=== PATIENT | female | born 2000 | race Caucasian/White ===

== ENCOUNTER 2025-05-15 15:58 | Day surgery (SDC) | payer OTHER, SELFPAY ==
[2025-05-15] VITALS (10 sets, daily range): BP systolic 96–121; BP diastolic 58–84
[2025-05-15 12:03] LABS: Hematocrit 40.6 % (37.0-47.0); Hemoglobin 13.5 g/dL (12.0-16.0); Mean Corp Hgb Conc. 33.3 g/dL (33.0-37.0); Mean Corpuscular Volume 93.5 fL (81.0-99.0); Nucleated Red Blood Cells % 0 %; Platelet Count 201 10^3/uL (130-400); Red Cell Dist. Width 12.2 % (11.5-14.5)
[2025-05-15 12:17] LABS: HCG, Serum Qualitative Screen Negative
[2025-05-15 12:20] LABS: ALT (SGPT) 20 U/L (0-35); AST (SGOT) 20 U/L (14-36); Albumin 4.2 g/dl (3.5-5.0); Alkaline Phosphatase 50 U/L (38-126); Blood Urea Nitrogen 11 mg/dl (7-17); Calcium 9.2 mg/dl (8.4-10.2); Carbon Dioxide 26 mmol/L (22-30); Chloride 106 mmol/L (98-107); Glucose 96 mg/dl (70-99); Lipase 56 U/L (23-300); Potassium 4.0 mmol/L (3.5-5.1); Sodium 138 mmol/L (135-145); Total Protein 7.1 g/dl (6.3-8.2); eGFR > 60.00
--- NOTE | 2025-05-15 12:48 | ED.GENMED ---
History of Present Illness
General
Chief Complaint: Abdominal Pain
Time Seen by Provider: 05/15/25 12:48
History of Present Illness
History of Present Illness:
FOCUSED PAST MEDICAL HISTORY
- Has had kidney stones
REVIEW OF OLD RECORDS
- No old records available for review
Note:
CHIEF COMPLAINT(S)
Abdominal pain.
HISTORY OF PRESENT ILLNESS
The patient is a 25-year-old female who presented with abdominal pain that began suddenly yesterday at approximately 1 PM. The pain originated in the upper abdomen above the umbilicus and radiated to the sides. She described the discomfort as
progressing quickly within the hour, noting it was particularly tender to palpation to the right of her umbilicus. She reported having a bowel movement and experiencing gas preceding the onset of pain. Although the pain was worse yesterday, she
stated it is still present today. The pain is characterized as a sharp sensation, with localized tenderness upon palpation. The patient also noted that her menstruation is delayed by about a week and a half, raising concerns about her condition.
Additionally, the patient maintains an appetite and could eat if necessary.
PAST MEDICAL AND SURGICAL HISTORY
The patient confirmed she still has her appendix.
ADDITIONAL HISTORY OBTAINED FROM SOURCES OTHER THAN THE PATIENT
The patients boyfriend mentioned the patient feeling discomfort and having tenderness upon applying pressure around the abdomen, particularly to the right of the umbilicus.
SOCIAL HISTORY
No details regarding smoking, alcohol, or drug use were discussed.
REVIEW OF SYSTEMS
- Gastrointestinal:
- Upper abdominal pain above the belly button, radiating to the right side.
- Sharp pain, tender to touch.
- Bowel movement prior to the onset of pain.
- Gas present since onset.
- General:
- Delayed menstrual period by a week and a half.
- Maintained appetite.
PHYSICAL EXAM
- General: Alert, no acute distress.
- Skin: Warm, dry.
- Head: Normocephalic, atraumatic.
- Neck: Supple, trachea midline.
- Eye, Ears, Nose, Mouth, and Throat: Oral mucosa moist.
- Cardiovascular: Normal peripheral perfusion, no edema.
- Respiratory: Respirations are non-labored.
- Gastrointestinal: There is mild diffuse tenderness which is slightly more prominent the right lower quadrant, no peritoneal signs
- Back: Normal range of motion, normal alignment.
- Musculoskeletal: Normal ROM, normal strength.
- Neurological: Alert and oriented to person, place, time, and situation; no focal neurological deficit observed.
- Psychiatric: Cooperative, appropriate mood & affect.
PLAN
1. Obtain an abdominal ultrasound to assess for potential ovarian cyst and evaluate the appendix.
2. Encourage the patient to drink fluids to fill the bladder to facilitate ultrasound visualization.
3. Monitor and re-evaluate based on ultrasound findings.
4. Discuss non-invasive nature of ultrasound versus the radiation risk of a CT scan.
DIFFERENTIAL DIAGNOSIS
The Differential Diagnosis includes, in no particular order and is not limited to:
1. Ovarian cyst
2. Appendicitis
3. Early
4. Gastroenteritis
5. Pelvic inflammatory disease
6. Urinary tract infection
7. Musculoskeletal pain
8. Gastritis
9. Peptic ulcer disease
10. Constipation
RADIOLOGY
- Ultrasound imaging obtained
LABS
- White count and hemoglobin are normal, chemistries unremarkable, lipase and ALT is normal, hCG negative
UPDATE
-SUMMARY OF ENCOUNTER
The patient is a 25-year-old female who presented to the emergency department with sudden onset abdominal pain that began yesterday, described as sharp and localized to the right of the umbilicus. The concern was raised regarding possible
appendicitis, given the acute nature and tenderness upon palpation. A pelvic ultrasound ruled out ovarian cysts. However, a lower quadrant ultrasound suggested appendicitis with an enlarged appendix and inflammatory changes. The decision was made to
consult with the on-call general surgeon for evaluation and probable surgical intervention. An IV line was placed, and IV antibiotics were prepared for administration.
DISPOSITION
Admit for surgical evaluation and potential operative intervention.
ASSESSMENT
The patient exhibits signs and imaging findings suggestive of appendicitis.
EMERGENCY TREATMENTS ADMINISTERED
IV antibiotics were administered after placing an IV line.
MANAGEMENT OF THE PATIENTS CARE WAS DISCUSSED WITH
Consultation with Dr. Coleman, on-call for general surgery, was conducted for evaluation and likely OR intervention.
PLAN
Admit the patient under the care of general surgery for further evaluation and potential surgery for appendicitis. Administer IV antibiotics.
INDEPENDENT REVIEW OF LABS AND INTERPRETATION OF TESTS
My independent interpretation of the pelvic ultrasound indicates no ovarian cysts present. My independent interpretation of the lower quadrant ultrasound shows an appendix measuring 8mm with inflammatory changes suggestive of appendicitis.
MEDICAL DECISION MAKING
- Number and Complexity of Problems Addressed: Chronic conditions affecting care include potential appendicitis and differential diagnosis considerations such as ovarian cyst, appendicitis, early , gastroenteritis, pelvic inflammatory
disease, urinary tract infection, musculoskeletal pain, gastritis, peptic ulcer disease, and constipation.
- Data:
Category 1: My independent interpretation of the pelvic ultrasound ruled out ovarian cysts. My independent interpretation of the lower quadrant ultrasound indicates an appendicitis diagnosis.
Category 3: Discussion of management with Dr. Coleman, on-call general surgeon.
- Risk: Consideration of Admission/Observation: Escalation of care including admission was necessary given the complexity and risk of the patients presenting complaint and imaging findings suggestive of appendicitis.
DIAGNOSIS
Acute appendicitis (K35.80).
Phy Exam
Physical Exam
Physical Exam:
See HPI
Course
Orders/Labs/Results
Orders:
Orders
05/15/25 Lunch
NPO
Allow oral meds: Yes
Allow clear liquids: No
05/15/25 11:49
Test Result ONCE
05/15/25 11:56
C-Reactive Protein Urgent
Comment: CRP ADDED ON BY FLOOR 2:50PM 05-15-25
CBC/With Diff [Complete Blood Count/With Diff] Urgent
CMP [Comprehensive Metabolic Panel] Urgent
HCG, Serum Qualitative Screen Urgent
Lipase Urgent
05/15/25 12:54
US Abdomen - Appendix Only Urgent
Comment:
Reason For Exam: abd pain; RLQ tender; normal WBC; hcg neg
US Pelvis Only (non-obstetric) Urgent
Comment:
Reason For Exam: abd pain; RLQ tender; normal WBC; hcg neg
05/15/25 14:52
Add On- LAB Urgent
Tests Added?: cRP
05/15/25 15:00
0.9% Sodium Chloride 1000 ml [Nss] 1,000 ml IV BOLUS
05/15/25 15:40
Ampicillin/Sulbactam 3 G [Unasyn] 3 gm 0.9% Sodium Chloride 100 ml [Nss] 100 ml IV NOW
05/15/25 15:51
Dexamethasone Sod Phosphate [Decadron] 20 mg .ROUTE .STK-MED ONE
Fentanyl Citrate/Pf [Sublimaze] 100 mcg .ROUTE .STK-MED ONE
Lidocaine 2% Mpf [Xylocaine Mpf 2%] 100 mg .ROUTE .STK-MED ONE
Midazolam HCl [Versed] 2 mg .ROUTE .STK-MED ONE
Ondansetron Injectable [Zofran] 4 mg .ROUTE .STK-MED ONE
Propofol [Diprivan] 20 ml .ROUTE .STK-MED
Rocuronium Duson [Rocuronium] 50 mg .ROUTE .STK-MED ONE
05/15/25 15:52
Bupivacaine 0.25%Pf/Epinephrin [Sensorcaine-Epi 0.25%-0.0005] 30 ml .ROUTE .STK-MED ONE
Dexamethasone Pf [Decadron] 10 mg .ROUTE .STK-MED ONE
05/15/25 16:04
Fentanyl Citrate/Pf [Sublimaze] 25 mcg IV [id number] PRN
Fentanyl Citrate/Pf [Sublimaze] 25 mcg IV PACU-Q5MPRN PRN
Fentanyl Citrate/Pf [Sublimaze] 50 mcg IV PACU-Q5MPRN PRN
Ondansetron Injectable [Zofran] 4 mg IV PACU-ONCEPRN PRN
Prochlorperazine [Compazine] 5 mg IV PACU-ONCEPRN PRN
05/15/25 16:05
Notify MD As Directed
Notify physician if: for SDS patients with known or suspected sleep obstructive sleep apnea, monitor in the
PACU.
Notify MD for any apneic/desaturation episodes
O2 Therapy [RESP] Urgent
Titrate/Wean O2 to maintain O2 sat greater than (%): 92
Special Instructions: -Provide supplemental oxygen to achieve O2 sat of 92% or greater.
-After 15 min, may wean O2 and discontinue if patient is able to maintain O2 sat of 92%
or greater during recovery period.
If patient is a discharge home, without oxygen therapy, notify anestheiologist if
unable to maintain O2 SAT of 92% or greater on room air for MD clearance.
05/15/25 16:15
Normosol (Mult Electrolytes) [Normosol-R/Plasmalyte-A] 1,000 ml IV PER PROTOCOL
05/15/25 16:23
Propofol [Diprivan] 20 ml .ROUTE .STK-MED
05/15/25 16:47
Acetaminophen 1000MG/100Ml [Ofirmev] 1,000 mg in 100 ml .ROUTE .STK-MED
05/15/25 16:48
Sugammadex Sodium [Bridion] 200 mg .ROUTE .STK-MED ONE
05/15/25 16:54
OR Pathology Routine
Pre-Operative Diagnosis: ACUTE APPENDICITIS, ABDOMINAL PAIN
Operative Procedure: Laparoscopic Appendectomy
Surgeon: STACIE COLEMAN
Circulating Nurse: HARDY TONY
Specimen Type: APPENDIX
05/15/25 17:05
Ketorolac [Toradol] 30 mg .ROUTE .STK-MED ONE
05/15/25 17:08
Phenylephrine HCl/0.9% NaCl [Romaine-Synephrine] 1,000 mcg .ROUTE .STK-MED ONE
05/15/25 17:17
HYDROmorphone [Dilaudid] 1 mg .ROUTE .STK-MED ONE
05/15/25 18:00
Acetaminophen [Tylenol] 650 mg PO SDS-Q4HPRN PRN
Ibuprofen [Motrin] 600 mg PO SDS-Q6HPRN PRN
Ondansetron Injectable [Zofran] 4 mg IV SDS-ONCEPRN PRN
Oxycodone [Roxicodone] 10 mg PO SDS-Q4HPRN PRN
Oxycodone [Roxicodone] 5 mg PO SDS-Q4HPRN PRN
05/15/25 18:24
Oxycodone [Roxicodone] 5 mg .ROUTE .STK-MED ONE
Abnormal Lab Results
05/15/25
11:56
MCH 31.1 H pg
(27.0-31.0)
MPV 10.8 H fL
(7.4-10.4)
C-Reactive Protein 28.70 H mg/L
(0.0-10.00)
05/15/25 11:56
05/15/25 11:56
Vital Signs
Initial and Last Documented VS:
Initial Vital Signs
Temp Pulse Resp BP Pulse Ox
36.7 C 75 20 118/84 99
05/15/25 11:45 05/15/25 11:45 05/15/25 11:45 05/15/25 11:45 05/15/25 11:45
Last Documented Vital Signs
Temp Pulse Resp BP Pulse Ox
36.4 C 72 19 101/70 98
05/15/25 18:06 05/15/25 18:27 05/15/25 18:27 05/15/25 18:38 05/15/25 18:37
*Pulse Oximetry
SaO2: 99
Oxygen Mode of Delivery: Room air
Patient hypoxic: no
*Critical Care Note
Total Time (30-74mins, 75-104mins- exclusive of procedures): Not Applicable
ED Attending Note
-
Portions of this chart may have been created with voice recognition software.� Occasional wrong word or��sound alike� substitutions may have occurred due to the inherent limitations of voice recognition software.
Discharge Plan
Departure
Patient Disposition: Admit
Date of Disposition: 05/15/25
Time of Disposition: 15:00
Presentation/result/management discussed w/ accepting MD/DO: della
Discharge Problem:
Acute appendicitis
Interventions
Interventions:
*Risk Screen - Suicide Last Done: 05/15/25 11:45
*General Assessment Last Done: 05/15/25 11:45
*Neglect/Abuse Screening Last Done: 05/15/25 11:45
*ED- Fall Risk Assessment Last Done: 05/15/25 14:14
*ED COVID-19 Vaccine History Last Done: 05/15/25 11:45
*ED Influenza Vaccine History Last Done: 05/15/25 11:45
*Nursing Disposition Last Done: 05/15/25 15:58
AC-Oijywb-Bpnyuqoaqp Assessment Last Done: 05/15/25 14:14
Discharge Date and Time
Discharge Date/Time: 05/15/25 15:58
--- NOTE | 2025-05-15 15:17 | HPS.HSE ---
Family Physician
-
Family Physician: * NONE
Chief Complaint
-
RLQ pain
History of Present Illness
Ms Perez is a 25 yo female without significant medical history who present for approximately 24 hours of abdominal pain. Her pain began initially in the mid abdomen above the umbilicus and then radiated down into the RLQ. She has RLQ tenderness
present on exam. She denies fevers, chills, bowel or bladder changes. She denies associated nausea or vomiting.
Medical History
Past Medical History
Past Medical History: Reports None
Past Surgical History: Reports Other (Descanso teeth removal)
Social History
Tobacco: Non-smoker
Family History
Family History: Not pertinent
Allergies / Home Medications
Allergies reflects when Allergies were last updated in [employer].
Home Medications with original date entered in [employer]
Allergy/Medication List:
Patient Allergies
Allergy/AdvReac Type Severity Reaction Status Date / Time
No Known Allergies Allergy Unverified 05/15/25 11:44
If medication reconciliation has not been performed, why?: Medication List N/A
Review of Systems
-
History Source: Patient
A 12 point ROS was completed and negative except as noted: Yes
Physical Exam
Vital Signs
Vital Signs
Temp Pulse Resp BP Pulse Ox
98.1 F 75 20 118/84 99
05/15/25 11:45 05/15/25 11:45 05/15/25 11:45 05/15/25 11:45 05/15/25 12:48
Physical Exam
General: Well Developed and Well Nourished
HEENT: NormoCephalic and Moist mucous membranes
GI: Soft and Tender (RLQ, +rovsing's)
Skin: Warm and Dry
Neuro: Awake, Alert and AO x 3
Psych: Calm
Laboratory Results
-
05/15/25 11:56
05/15/25 11:56
Laboratory Results
Total Bilirubin 0.9 mg/dl (0.2-1.3) 05/15/25 11:56
AST 20 U/L (14-36) 05/15/25 11:56
ALT 20 U/L (0-35) 05/15/25 11:56
Alkaline Phosphatase 50 U/L (38-126) 05/15/25 11:56
Lipase 56 U/L (23-300) 05/15/25 11:56
Data Reviewed
-
Ultrasound: Image Personally Visualized and interpreted, Report Reviewed by me, Discussed with Physician and Discussed with Patient
Lab Data: Labs Reviewed by me, Discussed with Physician and Discussed with Patient
Old Records: Reviewed
Impression/Plan
-
IMPRESSION:
25 yo female presenting with 24 hours of abdominal pain now localized to the RLQ with exam and US imaging consistent with acute appendicitis. Normal WBC. Normal renal function. Afebrile, VSS.
PLAN:
Will plan laparoscopic appendectomy today
NPO for OR
Unasyn given in the ED
Analgesics as needed
[2025-05-15] MEDS: NSS 1000 IV (15:22)
[2025-05-15 15:44] LABS: C-Reactive Protein 28.70 mg/L (0.0-10.00)
--- NOTE | 2025-05-15 17:35 | W.IMMPOSTOP ---
Surgical Immed Post Op Note
-
Primary Surgeon: Hill Coleman MD
Assisting Surgeon: Jaimie Wagner NP
Pre-op Diagnosis: acute appendicitis
Post-op Diagnosis: same
Procedure Performed: laparoscopic appendectomy
Anesthesia Type: general plus local
Specimen / Cultures: appendix
Estimated Blood Loss: 5 cc
Complications: no immediate
Operative Findings: swollen non-perforated appendix
Hope to d/c from [facility].
[2025-05-15] MEDS: ROXICODONE 5 MG PO (18:25)
== END 2025-05-15 17:39 | disposition home or self-care (01) ==
LOC: SDS 15:58
PROVIDERS: ATTENDING PHYSICIAN Surgery; EMERGENCY PHYSICIAN Emergency Medicine
DX: K35.80 Unspecified acute appendicitis (principal)
CPT/HCPCS: 44970; 76705; 76856; 80053; 83690; 84703; 85025; 86140; 88304; 96360; 99284

== ENCOUNTER 2025-05-16 22:14 | Emergency (ER) | payer OTHER, SELFPAY ==
[2025-05-16 22:16] VITALS: BP 102/68
[2025-05-16 23:07] LABS: Hematocrit 37.2 % (37.0-47.0); Hemoglobin 12.2 g/dL (12.0-16.0); Mean Corp Hgb Conc. 32.8 g/dL (33.0-37.0); Mean Corpuscular Volume 93.5 fL (81.0-99.0); Nucleated Red Blood Cells % 0 %; Platelet Count 176 10^3/uL (130-400); Red Cell Dist. Width 12.4 % (11.5-14.5)
[2025-05-16 23:27] LABS: HCG, Serum Qualitative Screen Negative
[2025-05-16 23:30] VITALS: BP 105/71
[2025-05-16 23:31] LABS: ALT (SGPT) 17 U/L (0-35); AST (SGOT) 16 U/L (14-36); Albumin 3.6 g/dl (3.5-5.0); Alkaline Phosphatase 41 U/L (38-126); Blood Urea Nitrogen 18 mg/dl (7-17); Calcium 8.8 mg/dl (8.4-10.2); Carbon Dioxide 25 mmol/L (22-30); Chloride 110 mmol/L (98-107); Glucose 113 mg/dl (70-99); Potassium 3.8 mmol/L (3.5-5.1); Sodium 142 mmol/L (135-145); Total Protein 6.1 g/dl (6.3-8.2); eGFR > 60.00
--- NOTE | 2025-05-16 23:44 | ED.GENMED ---
History of Present Illness
General
Chief Complaint: Post Operative Problem(s)
Source: patient
Exam Limitations: none
Time Seen by Provider: 05/16/25 23:24
Nursing documentation reviewed up to this point in time: agreed with
History of Present Illness
History of Present Illness:
Note:
CHIEF COMPLAINT(S)
Chest pain and difficulty breathing following recent surgery.
HISTORY OF PRESENT ILLNESS
The patient is a 25-year-old female who presents today from home with chest pain and difficulty breathing, which began the night after her recent surgery. Of note, she had an appendectomy yesterday (05/15) and reports that her pain started that
night, The pain initially started on the right side and later involved the left side. The patient reported the pain worsens when lying down and decreases in intensity when standing and sitting. She describes the pain as sharp and states that it is
aggravated by deep breaths, laughing, or coughing. She notes that the pain is persistent, even with the use of pain medications, including oxycodone and acetaminophen, which provided minimal relief earlier. The patient denies any history of similar
symptoms, coughing, fever, or recent infections. She expresses feeling shortness of breath upon standing and walking but not while lying down. There was no indication of redness, swelling, or pain in the lower extremities, no back pain, and no
obvious tenderness to touch. She denies any sick contacts. She called her surgeon who advised her to report to the ER for further evaluation.
PAST MEDICAL AND SURIGICAL HISTORY
unremarkable laparoscopic appendectomy
SOCIAL HISTORY
The patient reported a history of smoking tobacco products in the past but quit over a year and a half ago.
REVIEW OF SYSTEMS
- General: No fever reported.
- Respiratory: Shortness of breath upon standing and walking; pain worsens with deep breathing.
- Cardiovascular: No palpitations reported; family history of unspecified heart issues in the mother.
- Gastrointestinal: No symptoms discussed.
- Neurological: No focal neurological deficits reported.
- Musculoskeletal: No redness, swelling, or pain in the lower extremities.
PHYSICAL EXAM
General: Alert, no acute distress.
Skin: Warm, dry.
Head: Normocephalic, atraumatic.
Neck: Supple, trachea midline.
Eyes, Ears, Nose, Mouth, and Throat: Oral mucosa moist.
Cardiovascular: No tenderness to palpation to the external chest wall. Regular rate and rhythm, no murmurs. Normal peripheral perfusion, No edema.
Respiratory: Respirations are non-labored. No wheezes, rales, rhonchi.
Gastrointestinal: Abdomen nondistended.
Back: Normal range of motion, Normal alignment.
Musculoskeletal: Normal range of motion, normal strength.
Neurological: Alert and oriented to person, place, time, and situation, No focal neurological deficit observed.
Psychiatric: Cooperative, appropriate mood & affect.
PLAN
- Obtain a CT scan of the chest to rule out pulmonary embolism or pneumothorax as possible causes of the chest pain.
- Assess for pleuritic inflammation, a potential cause for the symptoms post-surgery.
- Continue pain management and monitor patients symptoms.
- Advise follow-up based on imaging results to determine further management or need for additional interventions.
DIFFERENTIAL DIAGNOSIS
The Differential Diagnosis includes, in no particular order and is not limited to:
1. Pulmonary embolism
2. Pneumothorax
3. Pleuritic inflammation
4. Musculoskeletal pain
5. Post-surgical pain syndrome
6. Costochondritis
7. Gastroesophageal reflux disease (GERD)
8. Myocarditis
9. Pericarditis
10. Anxiety-related chest pain
Disposition:
SUMMARY OF ENCOUNTER
The patient, a 25-year-old female, presented to the emergency department with concerns of chest pain, which worsens with deep breathing, laughing, and lying down. She recently underwent an appendectomy, which increases her risk for postoperative
complications such as pulmonary embolism (PE). After the assessment, she was sent for a PE study, which returned negative. Her symptoms were ruled out for acute coronary syndrome (ACS) with normal EKGs and troponin levels. It is suspected that the
chest pain may be due to musculoskeletal etiologies related to recent surgery and intubation, or possibly a component of pleurisy or costochondritis. The patient responded well to treatment and was observed sleeping comfortably.
DISPOSITION
Discharge.
ASSESSMENT
Suspected musculoskeletal pain related to recent surgery and intubation, pleurisy, or costochondritis.
PLAN
Discuss the use of anti-inflammatory medications at home.
INDEPENDENT REVIEW OF LABS AND INTERPRETATION OF TESTS
- My independent review of the pulmonary embolism study is negative for PE.
- My independent review of the EKGs indicates normal results.
- My independent review of the cardiac markers shows normal troponin levels.
PATIENT EDUCATION AND COUNSELING
The patient was advised on the use of anti-inflammatory medications at home for symptom management.
FOLLOW-UP INSTRUCTIONS
The patient was advised to follow up with her primary care provider or surgeon if symptoms persist or worsen.
MEDICATION RECONCILIATION
Discussed the use of anti-inflammatory medications.
MEDICAL DECISION MAKING
-Number and Complexity of Problems Addressed: Post-surgical complications. Potential musculoskeletal pain, pleurisy, costochondritis, or a result of postoperative intubation.
-Data:
-Category 1:
- My independent interpretation of the pulmonary embolism study, which was negative.
- My independent review of the EKG and troponin levels indicated normal results.
- Risk: Escalation of care including admission/observation was considered given the complexity and risk of the patients presenting complaint and exam findings. However, ultimately I feel the patient is safe for outpatient management with close
follow-up due to reassuring work-up, well-controlled symptoms upon reevaluation, stable vitals, and reliable follow-up.
DIAGNOSIS
- Musculoskeletal chest pain (ICD-10: M54.6)
- Pleurisy (ICD-10: R09.1)
Review of Systems
Review of Systems
All Other Systems: ROS reviewed and negative except as documented in HPI and ROS
Phy Exam
Physical Exam
Physical Exam:
see hpi
Course
Orders/Labs/Results
Orders:
Orders
05/16/25 22:19
EKG [Electrocardiogram (*1)] Urgent
Reason for Study: Chest Pain
EKG- Treatment ONCE
05/16/25 23:01
Test Result ONCE
05/16/25 23:02
Complete Blood Count/With Diff Urgent
Comprehensive Metabolic Panel Urgent
HCG, Serum Qualitative Screen Urgent
Troponin I Urgent
05/17/25 00:03
CT Chest PE Study Urgent
Reason For Exam: chest pain, shortness of breath
05/17/25 01:29
Ketorolac [Toradol] 15 mg IV NOW STA
05/17/25 02:00
Electrocardiogram (*1) Urgent
Reason for Study: Chest Pain
05/17/25 02:07
Troponin I Urgent
Abnormal Lab Results
05/16/25
23:02
RBC 3.98 L 10^6/uL
(4.20-5.40)
MCHC 32.8 L g/dL
(33.0-37.0)
MPV 11.4 H fL
(7.4-10.4)
Chloride 110 H mmol/L
(98-107)
BUN 18 H mg/dl
(7-17)
Glucose 113 H mg/dl
(70-99)
Total Protein 6.1 L g/dl
(6.3-8.2)
05/16/25 23:02
05/16/25 23:02
Vital Signs
Initial and Last Documented VS:
Initial Vital Signs
Temp Pulse Resp BP Pulse Ox
97.6 F 67 16 102/68 100
05/16/25 22:16 05/16/25 22:16 05/16/25 22:16 05/16/25 22:16 05/16/25 22:16
Last Documented Vital Signs
Temp Pulse Resp BP Pulse Ox
97.6 F 61 14 97/68 97
05/16/25 22:16 05/17/25 00:45 05/17/25 00:45 05/17/25 00:00 05/17/25 00:45
*Pulse Oximetry
SaO2: 98
Oxygen Mode of Delivery: Room air
Patient hypoxic: no
*Critical Care Note
Total Time (30-74mins, 75-104mins- exclusive of procedures): Not Applicable
ED Attending Note
-
Portions of this chart may have been created with voice recognition software.� Occasional wrong word or��sound alike� substitutions may have occurred due to the inherent limitations of voice recognition software.
Discharge Plan
Departure
Patient Disposition: Home (Routine Discharge)
Date of Disposition: 05/17/25
Time of Disposition: 03:17
Patient with high blood pressure during this ER visit?: No
Condition: Good
Discharge Problem:
Chest pain
Instructions: Postoperative Pain (DC), Pleurisy
Prescriptions:
No Action
Louise[place] Extra Strength 500-1,985-1,000 mg Tablet, Effervescent
1 ea PO DAILYPRN PRN (Reason: cold/flu)
acetaminophen 325 mg tablet
650 mg PO Q4HPRN PRN (Reason: mild pain) Qty: 1 0RF
ibuprofen 200 mg tablet
400 - 600 mg PO Q6HPRN PRN (Reason: moderate pain) Qty: 1 0RF
oxycodone 5 mg tablet
5 mg PO Q4HPRN PRN (Reason: breakthrough/severe pain) Qty: 8 0RF
Referrals:
NONE,* [Family Provider, Internal Medicine]
Stand Alone Forms: Return to Work
Activity Restrictions/Additional Instructions:
Please continue pain management at home. Please follow-up with your surgeon. Please follow-up with your primary care provider in approximately 1 week for reexamination and reassessment of your symptoms.
PLEASE RETURN TO THE ER SHOULD YOU DEVELOP ANY ACUTE WORSENING OF YOUR PAIN, DIZZINESS, LIGHTHEADEDNESS, FAINTING SPELLS, PALPITATIONS, FEVERS, OR ANY OTHER SIGNS OR SYMPTOMS WORRISOME TO YOU.
Interventions
Interventions:
*Risk Screen - Suicide Last Done: 05/16/25 22:48
*General Assessment Last Done: 05/16/25 22:48
*Neglect/Abuse Screening Last Done: 05/16/25 22:48
*ED- Fall Risk Assessment Last Done: 05/16/25 22:48
*ED COVID-19 Vaccine History Last Done: 05/16/25 22:48
*ED Influenza Vaccine History Last Done: 05/16/25 22:48
*Nursing Disposition Last Done: 05/17/25 03:52
ED-Skin Assessment Last Done: 05/16/25 23:32
Discharge Date and Time
Print Language: FRISIAN
[2025-05-16 23:48] LABS: Troponin I < 0.012 ng/ml
[2025-05-17] VITALS: BP 97/68
[2025-05-17] MEDS: TORADOL 15 MG IV (01:36)
[2025-05-17 02:58] LABS: Troponin I < 0.012 ng/ml
== END 2025-05-17 03:53 | disposition home or self-care (01) ==
LOC: EMR 22:14
PROVIDERS: Physician Assistant; EMERGENCY PHYSICIAN Student in an Organized Health Care Education/Training Program
DX: R07.1 Chest pain on breathing (principal); G89.18 Other acute postprocedural pain; Z90.49 Acquired absence of other specified parts of digestive tract; Z87.891 Personal history of nicotine dependence
CPT/HCPCS: 96374; 99284; 71275; 80053; 84484; 84703; 85025; 93005; Q9967

== ENCOUNTER 2025-07-10 13:35 | Emergency (ER) | payer OTHER, SELFPAY ==
[2025-07-10 13:47] VITALS: BP 104/67
--- NOTE | 2025-07-10 15:02 | CON.GS ---
Consultation
-
Date/Time Consultation Performed: 07/10/25 1445
Medical History
-
Chief Complaint: drainage from umbilical wound
History of Present Illness:
Ms Perez is a 25 yo female who presented with acute appendicitis in April now s/p laparoscopic appendectomy on 05/15/25. She was discharged to home but noted that her umbilical incision was not healing well with an area of drainage noted. She
was evaluated by Dr. Coleman on 06/29/25 and started on antibiotics with wound care/silver nitrate application during her visit. Unfortunately, she has noted continued drainage from a pimple like opening. There is no surrounding erythema. She denies
fevers or chills.
Past Medical History
Past Surgical History: Appendectomy (05/15/25)
Social History
Tobacco: Non-Smoker
Alcohol: None
Family History
Family History: Reviewed & Not Pertinent
Allergies / Home Medications
Allergy/AdvReac Type Severity Reaction Status Date / Time
No Known Allergies Allergy Verified 07/10/25 13:47
�Medication �Instructions �Recorded �Confirmed �Type
acetaminophen 325 mg tablet 650 mg (2 x 325 mg) PO Q4HPRN PRN 05/15/25 Rx
mild pain #1 tab
aspirin 500 mg-sod bicarb 1,985 1 ea PO DAILYPRN PRN cold/flu 05/15/25 05/15/25 History
mg-citric acid 1,000 mg efferv
tablet ([place] Extra
Strength)
ibuprofen 200 mg tablet 400 - 600 mg (2 - 3 x 200 mg) PO 05/15/25 Rx
Q6HPRN PRN moderate pain #1 tab
oxycodone 5 mg tablet 5 mg PO Q4HPRN PRN 05/15/25 Rx
breakthrough/severe pain #8 tabs
Review of Systems
-
History Source: Patient
All other systems: Negative unless noted
A 10 point review of systems was completed, and was negative except as per HPI.
Physical Exam
Vital Signs
Temp Pulse Resp BP Pulse Ox
98.7 F 70 16 104/67 100
07/10/25 13:47 07/10/25 13:47 07/10/25 13:47 07/10/25 13:47 07/10/25 13:47
Physical Exam
General: Well Developed and Well Nourished
HEENT: Normocephalic and Moist Mucous Membranes
Respiratory: Non Labored Respirations
GI: Soft and Tender (localized to umbilicus wound)
Skin: Other (Lap incisions healing well. Small area of fluctuance with purulent drainage to distal end of umbilical incision. )
Neuro: Awake, Alert and AO x 3
Psych: Calm
Assessment / Plan
-
25 yo female s/p lap appi on 05/15/25 presenting with small abscess forming at umbilical incision site. No fevers, chills or systemic signs of infection. VSS. I&D preformed at bedside by surgeon (see separate note)
Plan:
Daily dressing changes, pack site as able
Finish previously prescribed course of antibiotics
Continue with previously planned follow up on Saturday with Dr. Coleman
Will send wound cx
Ok for d/c to home from ED
--- NOTE | 2025-07-10 15:09 | ED.GENMED ---
History of Present Illness
General
Chief Complaint: Skin Problem
Time Seen by Provider: 07/10/25 14:38
History of Present Illness
History of Present Illness:
Aleisha is a 22-year-old female with past medical history of recent appendectomy who was sent in for possible umbilical site abscess. Denies any fevers or chills. No associated symptoms.
Phy Exam
General Physical Exam
General Presentation: well appearing and no apparent distress
General Skin: warm and dry
General Habitus: normal
General Mental: alert
General Hydration: appears well hydrated
ENT Exam
ENT Exam: EOMI, pharynx normal, neck supple and normocephalic
Eye Exam
Eye Exam: PERRL, cornea clear and conjunctiva normal
Cardiovascular Exam
Cardiovascular Exam: regular rate/rhythm, no edema, no murmur and normal peripheral pulses
Pulmonary Exam
Pulmonary Exam: lungs clear, no respiratory distress, no rales, no crackles, no rhonchi, no stridor, no wheezing and no cough
Gastrointestinal Exam
Gastrointestinal Exam: normal bowel sounds, non tender, soft, no organomegaly, no pulsatile mass and non distended
Neurological Exam
Neurological Exam: alert, oriented x3, no motor deficits and speech normal
Musculoskeletal Exam
Musculoskeletal Exam: full ROM and no edema
Skin Exam
Skin Exam: normal color, warm/dry, no rash, no petechia and other (Umbilical site with dressing recently placed by surgical team.)
Psychiatric Exam
Psychiatric Exam: normal mood/affect
Course
Orders/Labs/Results
Orders:
Orders
07/10/25 14:42
HYDROmorphone [Dilaudid] 0.5 mg .ROUTE .STK-MED ONE
07/10/25 14:59
Wound Culture [Wound/Abscess/Other Culture] Routine
RYNE Source: Abscess
Specimen Description:
Date Specimen was Collected: 07/10/25
Time Specimen was Collected: 15:02
Vital Signs
Initial and Last Documented VS:
Initial Vital Signs
Temp Pulse Resp BP Pulse Ox
37.1 C 70 16 104/67 100
07/10/25 13:47 07/10/25 13:47 07/10/25 13:47 07/10/25 13:47 07/10/25 13:47
Last Documented Vital Signs
Temp Pulse Resp BP Pulse Ox
37.1 C 70 16 104/67 100
07/10/25 13:47 07/10/25 13:47 07/10/25 13:47 07/10/25 13:47 07/10/25 13:47
MDM/Problems Addressed
Differential Diagnosis Includes:
She was seen by surgical team prior to my evaluation. They performed incision and drainage of umbilical site abscess. She will follow-up in their office. Precautions discussed
*Pulse Oximetry
SaO2: 100
Oxygen Mode of Delivery: Room air
Patient hypoxic: no
*Critical Care Note
Total Time (30-74mins, 75-104mins- exclusive of procedures): Not Applicable
ED Attending Note
-
Portions of this chart may have been created with voice recognition software.� Occasional wrong word or��sound alike� substitutions may have occurred due to the inherent limitations of voice recognition software.
Discharge Plan
Departure
Patient Disposition: Home (Routine Discharge)
Date of Disposition: 07/10/25
Time of Disposition: 15:08
Patient with high blood pressure during this ER visit?: No
Discharge Problem:
Postoperative abscess
Instructions: Abscess incision and drainage - ED (DC)
Prescriptions:
No Action
[place] Extra Strength 500-1,985-1,000 mg Tablet, Effervescent
1 ea PO DAILYPRN PRN (Reason: cold/flu)
acetaminophen 325 mg tablet
650 mg PO Q4HPRN PRN (Reason: mild pain) Qty: 1 0RF
ibuprofen 200 mg tablet
400 - 600 mg PO Q6HPRN PRN (Reason: moderate pain) Qty: 1 0RF
oxycodone 5 mg tablet
5 mg PO Q4HPRN PRN (Reason: breakthrough/severe pain) Qty: 8 0RF
Referrals:
UNKNOWN - PT DOES,NOT KNOW [Family Provider]
Activity Restrictions/Additional Instructions:
Follow-up with surgery as directed.
Interventions
Interventions:
*Risk Screen - Suicide Last Done: 07/10/25 13:47
*General Assessment Last Done: 07/10/25 13:47
*Neglect/Abuse Screening Last Done: 07/10/25 13:47
Discharge Date and Time
Print Language: ICELANDIC
== END 2025-07-10 15:26 | disposition home or self-care (01) ==
LOC: EMR 13:35
PROVIDERS: EMERGENCY PHYSICIAN Student in an Organized Health Care Education/Training Program; OTHER PHYSICIAN Surgery
DX: T81.49XA Infection following a procedure, other surgical site, initial encounter (principal); Y83.8 Other surgical procedures as the cause of abnormal reaction of the patient, or of later complication, without mention of misadventure at the time of the procedure; Z90.49 Acquired absence of other specified parts of digestive tract
CPT/HCPCS: 10180; 99283; 87070; 87077; 87147; 87205